=== PATIENT | male | born 1950 | race Caucasian/White ===

== ENCOUNTER 2018-06-13 11:38 | Emergency (ER) | payer MEDICARE ==
[2018-06-13 12:08] VITALS: RESP 18; O2SAT 97
--- NOTE | 2018-06-13 12:37 | C.PDOC ---
History Of Present Illness 68-year-old male, presents to the emergency department for evaluation of right inner thigh rash, itchy that has gradually developed x2 weeks. Patient admits that he sustained a dog bite two moths ago when he was seen in clinic and completed antibiotics course without significant improvement. Pt reports, " family dog", immunizations UTD including rabbies. Pt denies any fever, chills, CP, SOB, dyspnea, palpitation, abd. pain, denies weakness, sensory or vascular deficits to Right leg, denies any other associated symptoms. Ambulate to Ed for evaluation, not in nay apparent distress. Time Seen by Provider: 06/13/18 12:04 Chief Complaint (Nursing): Wound Check History Per: Patient Past Medical History Reviewed: Historical Data, Nursing Documentation, Vital Signs Vital Signs: Last Vital Signs Temp 97.8 F 06/13/18 12:04 Pulse 53 L 06/13/18 12:04 Resp 18 06/13/18 12:04 BP 144/74 06/13/18 12:04 Pulse Ox 97 06/13/18 12:04 - Medical History PMH: No Chronic Diseases Surgical History: No Surg Hx Family History: States: No Known Family Hx - Social History Hx Tobacco Use: No Hx Alcohol Use: No Hx Substance Use: No - Immunization History Hx Tetanus Toxoid Vaccination: Yes Hx Influenza Vaccination: Yes Hx Pneumococcal Vaccination: Yes Review Of Systems Except As Marked, All Systems Reviewed And Found Negative. Constitutional: Negative for: Fever, Chills Eyes: Negative for: Vision Change ENT: Negative for: Ear Discharge, Nose Discharge, Throat Pain, Throat Swelling Cardiovascular: Negative for: Chest Pain Respiratory: Negative for: Shortness of Breath Gastrointestinal: Negative for: Nausea, Vomiting, Abdominal Pain Skin: Positive for: Rash Neurological: Negative for: Weakness, Numbness, Altered Mental Status, Headache, Dizziness Physical Exam - Physical Exam Appears: Well, Non-toxic, No Acute Distress Skin: Warm, Dry, No Rash, Other (Right inner thigh diffuse macular erythematous rash, dry with central small open wound, covered by scabr. No edema, no proximal streaking, no discharge, no flactulance.) Head: Atraumatic Eye(s): bilateral: PERRL Nose: No Flaring, No Discharge Oral Mucosa: Moist Tongue: No Swelling Lips: No Swelling Throat: No Drooling, Other (uvula midline, no edema.) Neck: Trachea Midline, Supple Cardiovascular: Rhythm Regular, No Murmur, No JVD Respiratory: No Decreased Breath Sounds, No Accessory Muscle Use, No Stridor, No Wheezing Gastrointestinal/Abdominal: Soft, No Tenderness, No Distention, No Guarding Extremity: Normal ROM, No Tenderness, No Calf Tenderness (B/L), No Deformity, No Swelling Neurological/Psych: Oriented x3, Normal Speech, Normal Motor, Normal Sensation, Normal Reflexes ED Course And Treatment O2 Sat by Pulse Oximetry: 97 Pulse Ox Interpretation: Normal Progress Note: On re-evaluation, pt is afebrile, hemodynamicaly stable. Non- toxic. PuslEOx 97% RA. ENT: no acute findings, uvula midline, no edema. Lungs: CTA B/L, BS equal B/L. Skin: erythematous dry rash over inner aspect Right thigh likely eczema with central open wound covered by dry scab. No edema, no proximal streaking, no flactulance. Pt was seen by ED attending and discharge with outpt f/u rec. Pt advised on course of ds. ref. to f/u with PMD in 2-3 days for re-eavl. return to Ed if any worsening or new changes. Disposition Counseled Patient/Family Regarding: Studies Performed, Diagnosis, Need For Followup, Rx Given - Disposition Referrals: [facility] [Outside] Disposition: HOME/ ROUTINE Disposition Time: 12:37 Condition: STABLE Additional Instructions: Use medication as prescribed Keep wound clean, cover with dressing during the day Follow up with PMD in 2-3 days for re-evaluation. return to ED if any worsening or new changes. Prescriptions: Doxycycline Hyclate [Doryx] 100 mg PO BID #1 tube Mupirocin 2% Ointment [Bactroban Ointment] 15 gm EXT BID #1 tube Prednisone [Deltasone] 40 mg PO DAILY #8 tablet Instructions: Eczema (Atopic Dermatitis) (DC), Cellulitis (Skin Infection), Adult (DC) Forms: [employer] (Faroese) - Clinical Impression Clinical Impression: Eczema, Cellulitis - Scribe Statement The provider has reviewed the documentation as recorded by the Scribe (Pj Terry) All medical record entries made by the Scribe were at my direction and personally dictated by me. I have reviewed the chart and agree that the record accurately reflects my personal performance of the history, physical exam, medical decision making, and the department course for this patient. I have also personally directed, reviewed, and agree with the discharge instructions and disposition.
[2018-06-13 13:16] VITALS: BP 145/76; PULSE 55; TEMP 97.6
== END 2018-06-13 13:15 | disposition home or self-care (01) ==
LOC: C.ER 11:38
DX: L30.9 Dermatitis, unspecified (principal); L03.90 Cellulitis, unspecified

== ENCOUNTER 2018-11-20 13:11 | Emergency (ER) | payer MEDICARE ==
--- NOTE | 2018-11-20 14:39 | C.PDOC ---
History Of Present Illness 68 y/o male,w/no significant PMhx, presents to the ER complaining of left lower leg swelling and redness which has been present for the past 3 weeks.Patient states that the symptoms are constant and have become increased since onset. Patient reports that the swelling initially started in the anterior ankle and foot radiating to the lower leg. He notes that he gets extremely dry skin in bilateral anterior dorsum ankles and feet which typically resolve spontaneously. However, he states that he has dry skin for the past 3 weeks. He has been applying cream( unknown) and GoldBond without relief.Denies having fever,chills, and body aches. Of note, patient states that he has annual checkup at [facility] in [place], his last check up was normal. Time Seen by Provider: 11/20/18 14:33 Chief Complaint (Nursing): Lower Extremity Problem/Injury History Per: Patient History/Exam Limitations: no limitations Onset/Duration Of Symptoms: Days Current Symptoms Are (Timing): Still Present Severity: Moderate Past Medical History Reviewed: Historical Data, Nursing Documentation, Vital Signs Vital Signs: Last Vital Signs Temp 98.9 F 11/20/18 13:24 Pulse 82 11/20/18 13:24 Resp 20 11/20/18 13:24 BP 130/74 11/20/18 13:24 Pulse Ox 97 11/20/18 13:24 - Medical History PMH: No Chronic Diseases Surgical History: No Surg Hx Family History: States: No Known Family Hx - Social History Hx Tobacco Use: No (has not smoked for over 20 years) Hx Alcohol Use: No Hx Substance Use: No - Immunization History Hx Tetanus Toxoid Vaccination: Yes Hx Influenza Vaccination: Yes Hx Pneumococcal Vaccination: Yes Review Of Systems Except As Marked, All Systems Reviewed And Found Negative. Constitutional: Negative for: Fever, Chills, Malaise Cardiovascular: Negative for: Chest Pain Respiratory: Negative for: Shortness of Breath Musculoskeletal: Positive for: Other (left leg swelling) Physical Exam - Physical Exam Appears: Non-toxic, No Acute Distress Skin: Warm, Dry, Rash (dry scaly brown rash to dorsum of bilateral ankles and feet) Head: Atraumatic, Normacephalic Eye(s): bilateral: Normal Inspection Nose: Normal Oral Mucosa: Moist Neck: Supple Chest: Symmetrical Cardiovascular: Rhythm Regular Respiratory: Normal Breath Sounds, No Rales, No Rhonchi, No Wheezing Gastrointestinal/Abdominal: Normal Exam, Soft, No Tenderness, No Guarding, No Rebound Extremity: Normal ROM, Other (left lower extremity edema from dorsum of foot extending to distal lower leg with erythema ) Neurological/Psych: Oriented x3, Normal Speech, Normal Motor, Normal Sensation ED Course And Treatment - Laboratory Results Result Diagrams: 11/20/18 15:21 11/20/18 15:21 O2 Sat by Pulse Oximetry: 97 (RA) Pulse Ox Interpretation: Normal Medical Decision Making Medical Decision Making: Impression: Left Lower Leg Cellulitis Plan: --Labs --Venous Duplex Scan- Low Ext. Lft. Updates: 16:20 Venous Duplex Scan is negative for DVT. Labs show normal lactic acid levels and no leukocytes. Test results discussed with patient. Patient has been discharged with prescriptions for Cephalexin and Motrin. Patient has been instructed to follow up in clinic in 2-3 days for outpatient treatment Disposition Counseled Patient/Family Regarding: Studies Performed, Diagnosis, Need For Followup, Rx Given - Disposition Referrals: [facility] at [facility] [Outside] (CALL TOMORROW TO SCHEDULE FOLLOWUP AT CLINIC IN 48 HOURS FOR REEVALUATION. IF YOU ARE UNABLE TO SCHEDULE FOLLOWUP RETURN TO ER IN 48 HOURS FOR REEVALUATION.) Disposition: HOME/ ROUTINE Disposition Time: 16:20 Condition: GOOD Prescriptions: Cephalexin [cephalexin] 500 mg PO QID #40 cap Ibuprofen [Motrin Tab] 600 mg PO Q8 PRN #60 tab PRN Reason: Pain, Moderate (4-7) Instructions: Cellulitis (Skin Infection), Adult (DC) - Clinical Impression Clinical Impression: Cellulitis - Scribe Statement The provider has reviewed the documentation as recorded by the Scott Pacheco Provider Attestation: All medical record entries made by the Scott were at my direction and personally dictated by me. I have reviewed the chart and agree that the record accurately reflects my personal performance of the history, physical exam, medical decision making, and the department course for this patient. I have also personally directed, reviewed, and agree with the discharge instructions and disposition.
[2018-11-20 15:27] LABS: BASO % 0.7 % (0.0-2.0); EOS # 0.1 K/uL (0.0-0.7); EOS % 1.8 % (0.0-4.0); HEMOGLOBIN 12.9 g/dL (12.0-18.0); LYMPH # 1.7 K/uL (1.0-4.3); MEAN CELL VOLUME 70.7 fL (80.0-94.0); MEAN CORPUSCULAR HEMOGLOBIN 21.9 pg (27.0-31.0); MEAN CORPUSCULAR HGB CONC 30.9 g/dL (33.0-37.0); MONO # 0.6 K/uL (0.0-0.8); MONO % 9.9 % (0.0-10.0); NEUT # 3.3 K/uL (1.8-7.0); NEUT % 57.6 % (50.0-75.0); RBC 5.92 Mil/uL (4.40-5.90); RED CELL DISTRIBUTION WIDTH 15.6 % (11.5-14.5); WHITE BLOOD COUNT 5.8 K/uL (4.8-10.8)
[2018-11-20 15:35] LABS: INR 1.2; PROTHROMBIN TIME 12.7 SECONDS (9.7-12.2)
[2018-11-20 15:59] LABS: BLOOD UREA NITROGEN 14 mg/dL (9-20); CALCIUM 8.8 mg/dl (8.6-10.4); GFR NON-AFRICAN AMERICAN > 60
[2018-11-20 16:01] LABS: ALB/GLOB RATIO 1.3 (1.0-2.1); ALBUMIN 4.8 g/dL (3.5-5.0); ALT/SGPT 13 U/L (21-72); AST/SGOT 48 U/L (17-59)
[2018-11-20 16:56] VITALS: BP 133/87; PULSE 89; RESP 17; TEMP 98.6
[2018-11-20 16:57] VITALS: O2SAT 97
--- NOTE | 2018-11-21 12:50 | VASCLAB ---
Date of service: 11/20/2018 PROCEDURE: Left Lower Extremity Venous Duplex Exam. HISTORY: Leg swelling r/o DVT PRIORS: None. TECHNIQUE: Left common femoral, femoral, popliteal and posterior tibial, peroneal and great saphenous veins were evaluated. Flow was assessed with color Doppler, compressibility, assessment of phasic flow and augmentation response. Report prepared by ORALIA Mirza FINDINGS: LEFT: 1. Common Femoral Vein: 1.1. Compressibility - Fully compressible: Thrombus - None : Flow - Phasic: Augmentation -Normal: Reflux - None. 2. Femoral Vein: 2.1. Compressibility - Fully compressible: Thrombus - None: Flow - Phasic: Augmentation -Normal: Reflux - None. 3. Popliteal Vein: 3.1. Compressibility - Fully compressible: Thrombus - None: Flow - Phasic: Augmentation -Normal: Reflux - None. 4. Posterior Tibial Vein: 4.1. Compressibility - Fully compressible: Thrombus - None: Flow - Phasic: Augmentation -Normal: Reflux - None. 5. Peroneal Vein: 5.1. Compressibility - Fully compressible: Thrombus - None: Flow - Phasic: Augmentation -Normal: Reflux - None. 6. Great Saphenous Vein: 6.1. Compressibility - Fully compressible: Thrombus - None: Flow - Phasic: Augmentation - Normal: Reflux - None. OTHER FINDINGS: Normal venous flow noted in the RIGHT common femoral vein. IMPRESSION: No evidence of deep or superficial vein thrombosis of the left lower extremity with excellent venous flow. Normal valve function noted of the left side.
== END 2018-11-20 16:55 | disposition home or self-care (01) ==
LOC: C.ER 13:11
DX: L03.116 Cellulitis of left lower limb (principal)

== ENCOUNTER 2018-12-01 11:38 | Emergency (ER) | payer MEDICARE ==
--- NOTE | 2018-12-01 14:03 | C.PDOC ---
History Of Present Illness Patient is a 68 year old male with no past medical history who presents for a wound check. He was seen here at the ED on 11/20/18 for left lower extremity wound and was prescribed Cephalexin 500mg PO QID (which he finished) and ibuprofen 600mg Q8h for pain. He had a doppler of the LE, which was negative for pathology. He states the swelling and infection have improved, but he still has pain. He states he is not sure if the ibuprofen helps with the pain. He denies fevers, chills, difficulty walking, falls, trauma. He states he gets this when his skin is dry and is worse in the winter. He was referred to the [facility] clinic at [facility], but did not have time to make an appointment; therefore, he is following up here. PMD/PMHx/SurgHx/FamHx: denies SocHx: former smoker, laura 20years ago ([id number]); denies alcohol and drug use. Allergies: NKDA Medications: Ibuprofen 600mg PO Q8h for pain Chief Complaint (Nursing): Wound Check Past Medical History Surgical History: No Surg Hx Family History: States: No Known Family Hx - Social History Hx Tobacco Use: No (has not smoked for over 20 years) Hx Alcohol Use: No Hx Substance Use: No - Immunization History Hx Tetanus Toxoid Vaccination: Yes Hx Influenza Vaccination: Yes Hx Pneumococcal Vaccination: Yes Review Of Systems Constitutional: Negative for: Fever, Chills, Weakness Skin: Positive for: Rash (infection of the left LE) Neurological: Negative for: Weakness, Numbness, Incoordination Physical Exam - Physical Exam Appears: Well, Non-toxic, No Acute Distress Skin: No Normal Color, Warm, Dry, Other (Dry, cracked, sclaing of the lower legs bilaterally, left > right; 1+ edema of the LLE, no wheeping or discharge noted; sensory/motor intact.) Pulses: Left Dorsalis Pedis: Decreased, Right Dorsalis Pedis: Decreased Medical Decision Making Medical Decision Making: Patient is stable and clear for discharge. Patient is afebrile and no signs of weeping discharge or infection at this time. Patient instructed to wear compression stocking, apply ointments to protect skin twice a day and avoid cracking and further infections, and to follow up with [facility] at [facility] for continued care. Disposition - Disposition Referrals: [facility] at [facility] [Outside] Disposition: HOME/ ROUTINE Disposition Time: 14:06 Condition: STABLE Additional Instructions: Please apply Bacitracin Ointment twice a day to the lower legs and wear compression stocking. Continue taking Ibuprofen as needed for pain and elevate the affect limb as needed for swelling. Please make an appointment with the [facility] at [facility] within 1-2 days for continued care. If symptoms worsen or reoccur, please return to the nearest ER. Prescriptions: Bacitracin OINT 0 applic TOP BID #1 tube Instructions: Varicose Veins and Other Vein Disease in the Legs Forms: [employer] (Namibian) - Clinical Impression Clinical Impression: Venous stasis dermatitis of both lower extremities
[2018-12-01 14:21] VITALS: BMI 27.3
[2018-12-01 14:26] VITALS: BP 139/78; PULSE 58; RESP 18; TEMP 98.4; O2SAT 100
== END 2018-12-01 14:33 | disposition home or self-care (01) ==
LOC: C.ER 11:38
DX: I87.8 Other specified disorders of veins (principal); I87.2 Venous insufficiency (chronic) (peripheral); Z87.891 Personal history of nicotine dependence